=== PATIENT | female | born 1990 | race Caucasian/White ===

== ENCOUNTER 2016-09-23 19:45 | Emergency (ER) | payer SELFPAY ==
--- NOTE | 2016-09-23 22:10 | ED ORDER SUMMARY ---
..... Patient: TONYA REYNOSO OrderSheet [facility] VisitID: [id number] [address] [place] [address] 25y, F Registration Date/Time: 09/23/2016 ORDER SHEET Weight: 99.7 kg (stated) Allergies: No Known Drug Allergy GENERAL ORDERS: Accounts Receivable Accountant (Continuous) (20:04 09/23/2016 EKoroleva P.A.-C) (Ack 20:05 CHategekimana) (20:08 DDean R.N.) Urine Urgent (20:04 09/23/2016 EKoroleva P.A.-C) (Ack 20:05 CHategekimana) (20:08 DDean R.N.) (Cancelled: Other20:08 DDean R.N.) UA-Culture if indicated Urgent (20:04 09/23/2016 EKoroleva P.A.-C) (Ack 20:05 CHategekimana) (20:08 DDean R.N.) Cardiac Panel Stat (20:04 09/23/2016 EKoroleva P.A.-C) (Ack 20:05 CHategekimana) (20:08 DDean R.N.) EKG - ER Stat (20:04 09/23/2016 EKoroleva P.A.-C) (Ack 20:05 CHategekimana) (20:14 [facility] ER Kitchen Aide) POC - Urine hCG (20:09 09/23/2016 DDean R.N. per protocol) (20:09 DDean R.N.) Serum Quantitative Urgent (20:14 09/23/2016 EKoroleva P.A.-C) (Ack 20:28 CHategekimana) (20:55 DDean R.N.) MEDICATION ORDERS: Tylenol PO 650 mg (NOW) (22:12 09/23/2016 EKoroleva P.A.-C) (22:19 DDean R.N.) IV FLUIDS: IV Saline Lock (20:04 09/23/2016 EKoroleva P.A.-C) (20:10 DDean R.N.) IV NS : initial bolus 1000 mL (1000 mL/hr), then 1000 mL/hr for X1 (NOW); Jose Alberto (20:35 09/23/2016 Gabrielle Carson) (20:40 Yenifer Hurt) ORDER SHEET NOTES: [Electronically signed by Liseth Dorado P.A.-C (22:15 09/23/2016)] [Electronically signed by Krystal Lu R.N. (22:22 09/23/2016)] [Electronically locked/signed by Krystal Lu R.N. (22:22 09/23/2016)]
--- NOTE | 2016-09-23 22:10 | ED NURSING NOTES ---
Clinical Report - Nurses [place] [address] [place] [address] 09/23/2016 19:47 Patient: TONYA REYNOSO TRIAGE Triage time 1950. Acuity: LEVEL 3. Chief Complaint: (Pt staets she has had episodes of feeling like her heart was racing-- Just off and on throughout the day" pt drove from [place], so has been drinking alot of red bull and caffine.). TSERING COMA SCORE: Tsering Coma Scale: 15- eyes open spontaneously (4); best verbal response- oriented x 4 (5); best motor response- obeys commands (6). --20:00 Krystal Lu R.N. 19:53 09/23/16. BP: 116/66. HR: 89. RR: 16. O2 saturation: 100%. Temp: 98.3 F. Pain level now: 10/03. --20:00 Krystal Lu R.N. Weight: 99.7 kg stated. Height/Length: 66 inches Per Patient. BMI: 35.5. --19:54 Krystal Lu R.N. Medications Multivitamins Oral 1 pill, daily. Vitamin D Oral (Capsule 1000 unit) 1 capsule, daily . --19:55 Krystal Lu R.N. Allergies No Known Drug Allergy. --19:54 Krystal Lu R.N. History Arrived by private vehicle. Historian: patient. Accompanied by (dropped off). Primary physician (formerly [facility]). This started yesterday. ( c/o chest wall pain and low bilateral groin area pain . denies urinary symptoms, denies vag bleeding or discharge -- pt just did a [address] from [place]). PAST MEDICAL HX: Last normal menstrual period- 07/31/16. ( asthma, low BP,). SURGERY HX: No history of previous surgery. SOCIAL HX: Never smoker. No alcohol use or drug use. --20:00 Aly, Krystal, R.N. ADDITIONAL SURGERIES: no known surgeries. Interventions ID band on patient. To treatment room. --20:00 Krystal Lu R.N. PHYSICAL ASSESSMENT 19:50. Ambulatory to room. Patient gowned. GENERAL / NEURO / PSYCH: Alert. Oriented X 4. Appears anxious. RESPIRATORY: Respirations not labored. Chest wall tenderness. CVS: Capillary refill less than 2 seconds. GI / : Abdomen soft. SKIN: Skin is warm and dry. --20:02 Krystal Lu R.N. NURSING PROGRESS NOTES 19:50. environmental health nurse placed on patient. Patient gowned. Head of bed elevated. Reassurance given. Patient identifiers checked. Call light placed in reach. Side rails up. Bed placed in lowest position. Patient ready for evaluation- chart flagged. --20:00 Krystal Lu R.N. 20:09/23/16. Patient ID band checked for patient name and birthdate: patient confirmed. Clean catch urine collected with return of yellow-colored clear urine; sample sent to lab for urinalysis and culture. Specimen labeled in the presence of the patient. --20:00 Krystal Lu R.N. 20:09/23/2016 Site #1 started via IV in the left antecubital space with an 20g angiocath, with aseptic technique and good blood return; one attempt. Blood drawn: rainbow set. Labeled in the presence of the patient and sent to the lab. Saline lock flushed with 10 mL saline. --20:01 Krystal Lu R.N. 20:08 09/23/16. ( POC preg = Pos +, ERPA notified). --20:08 Krystal Lu R.N. EKG time: (2014). EKG was ordered, performed by a tech and shown to the PA. --20:14 Isai Lopez ER Residue Furnace Operator 20:40 09/23/2016 Started bag #1 1000 mL IV Fluids IV NS (Saline); at 1000 mL/hr over 1 hour(s) via site #1 via IV pump. Allergies verified and confirmed 5 rights. IV patency established. IV site checked: no pain, redness, or swelling. IV flushed thoroughly pre- and post-medication administration. --20:40 Alicia Dover R.N. 20:50 09/23/16. BP: 105/64. HR: 88. RR: 18. O2 saturation: 100%. Temp: deferred. Pain level now: 10/03. Additional comments: pt states that she had a brief episode of increased pain/ palpitations--however nothing seen on monitor when pt notified us . --20:54 Krystal Lu R.N. 22:01 09/23/16. BP: 100/51 (regular adult cuff) taken on the right arm, via an automated monitor, while lying. HR: 81. Additional comments: lying orthos. --22:02 Isai Lopez, ER Residue Furnace Operator 22:09/23/16. BP: 124/72 (regular adult cuff) taken on the right arm, via an automated monitor, while standing. PA notified. HR: 80 (regular). Additional comments: no dizzyness or complaints. --22:06 Isai Lopez, ER Residue Furnace Operator 22:09/23/2016 Tylenol (Acetaminophen) PO Tablets 650 mg given. Allergies verified and confirmed 5 rights. --22:19 Krystal Lu R.N. 22:09/23/2016 IV Fluids IV NS Discontinued: bag #1 infused upon discharge. Total amount infused: 1000 mL. IV patency established. IV site checked: no pain, redness, or swelling. IV flushed thoroughly. --22:19 Krystal Lu R.N. 22:09/23/2016 IV Saline Lock Drip IV Discontinued: bag #1. Total amount infused: 0 mL. IV patency established. IV site checked: no pain, redness, or swelling. IV flushed thoroughly. --22:19 Krystal Lu R.N. 22:09/23/2016 Site #1 removed upon discharge. Bandaid applied. --22:20 Krystal Lu R.N. DISPOSITION / DISCHARGE 22:20. Condition at departure: improved and stable. No learning barriers present. Discharge instructions provided and reviewed with the patient. Reviewed medication(s) (tylenol, zofran). Patient verbalized understanding. Written instructions provided in Urdu. The patient was discharged home and accompanied by spouse. She left the Emergency Department ambulatory and via private vehicle. Spouse driving. --22:21 Krystal Lu R.N. 22:20 09/23/16. BP: 107/58. HR: 87. RR: 18. O2 saturation: 98%. Temp: deferred. Pain level now: 10/03. --22:21 Krystal Lu R.N. Locked/Released at 09/23/2016 22:22 by Krystal Lu R.N.
--- NOTE | 2016-09-23 22:10 | ED ORDER SUMMARY ---
..... Patient: TONYA REYNOSO OrderSheet [facility] VisitID: [id number] [address] [place] [address] 25y, F Registration Date/Time: 09/23/2016 ORDER SHEET Weight: 99.7 kg (stated) Allergies: No Known Drug Allergy GENERAL ORDERS: Mailroom Assistant (Continuous) (20:04 09/23/2016 EKoroleva P.A.-C) (Ack 20:05 CHategekimana) (20:08 DDean R.N.) Urine Urgent (20:04 09/23/2016 EKoroleva P.A.-C) (Ack 20:05 CHategekimana) (20:08 DDean R.N.) (Cancelled: Other20:08 DDean R.N.) UA-Culture if indicated Urgent (20:04 09/23/2016 EKoroleva P.A.-C) (Ack 20:05 CHategekimana) (20:08 DDean R.N.) Cardiac Panel Stat (20:04 09/23/2016 EKoroleva P.A.-C) (Ack 20:05 CHategekimana) (20:08 DDean R.N.) EKG - ER Stat (20:04 09/23/2016 EKoroleva P.A.-C) (Ack 20:05 CHategekimana) (20:14 [facility] ER Administrative Support Associate) POC - Urine hCG (20:09 09/23/2016 DDean R.N. per protocol) (20:09 DDean R.N.) Serum Quantitative Urgent (20:14 09/23/2016 EKoroleva P.A.-C) (Ack 20:28 CHategekimana) (20:55 DDean R.N.) MEDICATION ORDERS: Tylenol PO 650 mg (NOW) (22:12 09/23/2016 EKoroleva P.A.-C) (22:19 DDean R.N.) IV FLUIDS: IV Saline Lock (20:04 09/23/2016 EKoroleva P.A.-C) (20:10 DDean R.N.) IV NS : initial bolus 1000 mL (1000 mL/hr), then 1000 mL/hr for X1 (NOW); Jose Alberto (20:35 09/23/2016 Gabrielle Carson) (20:40 Yenifer Hurt) ORDER SHEET NOTES: [Electronically signed by Liseth Dorado P.A.-C (22:15 09/23/2016)] [Electronically signed by Krystal Lu R.N. (22:22 09/23/2016)] [Electronically locked/signed by Krystal Lu R.N. (22:22 09/23/2016)]
--- NOTE | 2016-09-23 22:10 | ED CLINICAL REPORT ---
Clinical Report - Physicians/Mid Levels [facility] [address] [place] [address] 09/23/2016 19:47 Patient: TONYA REYNOSO Time Seen: 20:14 Sep 23 2016. Arrived- By private vehicle. Historian- patient. HISTORY OF PRESENT ILLNESS Chief Complaint: CHEST PAIN. This started yesterday and is still present. It is described as located in the central chest area. No nausea or vomiting. (Patient reports recently driving from [place] to here, having increased caffeine drinks, does need she is jittery, palpitations at times in her chest and epigastric. Decreased appetite. Patient also only on her menses. denies cardiac history. Denies any history of PE or DVT. Patient denies any recent illness, cough rhinorrhea or congestion. Reports she is late on her menses, may be .). REVIEW OF SYSTEMS No chills, cough, calf pain, fainting episodes or headache. No sore throat or abdominal pain. She has missed periods (07/31/16 lmp). All systems otherwise negative, except as recorded above. SOCIAL HISTORY Never smoker. No alcohol use or drug use. ADDITIONAL NOTES The nursing notes have been reviewed. PHYSICAL EXAM Vital Signs: 09/23/2016 19:53 BP: 116/66. HR: 89. RR: 16. O2 saturation: 100%. Temp: 98.3 F. Pain level now: 6/10. Appearance: Alert. No acute distress. Eyes: Eyes normal inspection. ENT: Nose normal. Pharynx normal. Neck: Normal inspection. CVS: Normal heart rate and rhythm. Heart sounds normal. Respiratory: No respiratory distress. Breath sounds normal. No retractions. Abdomen: Soft and nontender. Neuro: Oriented X 3. LABS, X-RAYS, AND EKG EKG: EKG time: (2014). No acute process. No acute ischemia. Rate: 83. Normal P waves. Normal JUSTEN. Normal QRS complex. Normal axis. Normal ST and T waves and QT. The study has been interpreted contemporaneously. The study has been independently viewed by me. The EKG appears to be a good tracing. Laboratory Tests: UA-Culture if indicated: (JUAN: 09/23/2016 19:55) ( [facility] [place] 09/23/2016 20:40) Final results Test Result Flag Units (Reference) URINE COLOR YELLOW URINE APPEARANCE CLEAR URINE GLUCOSE NEGATIVE (NEGATIVE) URINE BILIRUBIN NEGATIVE (NEGATIVE) URINE KETONE NEGATIVE (NEGATIVE) URINE SPECIFIC GRAVITY <= 1.005 L (1.010-1.030) URINE PH 7.0 (5.0-8.0) URINE PROTEIN NEGATIVE (NEGATIVE) URINE UROBILINOGEN 0.2 EU/dL (0.2-1.0) URINE NITRITE NEGATIVE (NEGATIVE) URINE BLOOD TRACE-LYSED (NEGATIVE) URINE LEUK ESTERASE TRACE (NEGATIVE) URINE RBC NONE SEEN rbc/hpf (0-1) URINE WBC 0-1 wbc/hpf (0-1) URINE EPITHELIAL CELLS 1-3 EPI/hpf (0-5) URINE BACTERIA TRACE (<1+) (NONE SEEN) URINE COMMENT CULTURE INDICATED URINE CULTURES ARE SET-UP BASED ON THE FOLLOWING CRITERIA:POSITIVE NITRITEPOSITIVE LEUKOCYTE ESTERASEGREATER THAN 10 WHITE BLOOD CELLSMODERATE (2+) OR GREATER BACTERIA CBC w Diff: (JUAN: 09/23/2016 20:00) ( [facility] [place] 09/23/2016 20:11) Final results Test Result Flag Units (Reference) WHITE BLOOD COUNT 12.7 H K/uL (4.5-11.5) RED BLOOD COUNT 4.48 M/uL (4.00-5.20) HEMOGLOBIN 13.3 gm/dL (12.0-16.0) HEMATOCRIT 39.9 % (36.0-46.0) MEAN CELL VOLUME 89 fL (80-100) MEAN CORPUSCULAR HGB 30 pg (26-34) MEAN CORPUSCULAR HGB CONC 34 g/dL (31-37) RED CELL DISTRIBUTION WIDTH 13.0 % (11.6-14.8) PLATELET COUNT 272 K/uL (150-400) NEUTROPHIL % 67.4 % (50-75) LYMPH % 23.2 L % (25-40) MONO % 7.0 % (3-14) EOSINOPHIL % 2.1 % (0-4) BASOPHIL % 0.3 % (0-2) Serum Quantitative: (JUAN: 09/23/2016 20:00) ( MsgRcvd 09/23/2016 21:54) Final results Test Result Flag Units (Reference) BETA HCG, QUANTITATIVE 253242 mIU/mL REFERENCE RANGE:Adult Males: <2 mIU/mLNon- Females: <6 mIU/mL Females:Approximate Approximate hCGGestational Age Range (mIU/mL) 0-1 week 0-501-2 weeks 40-3002-3 weeks 100-94754-9 weeks 500-87123-1 months 5,000-200,0002-3 months 10,000-100,0002nd trimester 3,000-50,0003rd trimester 1,000-50,000 CHEM 13 PANEL: (JUAN: 09/23/2016 20:00) ( MsgRcvd 09/23/2016 20:28) Final results Test Result Flag Units (Reference) GLUCOSE 84 mg/dL (70-110) BUN 7 mg/dL (7-18) CREATININE 0.6 mg/dL (0.6-1.3) Estimated GFR >60 mL/min Estimated GFR- >60 mL/min Note: Persistent reduction over 3 months in eGFR<60 mL/min/1.73 m2 defines CKD. Patients with eGFR values>=60 mL/min/1.73 m2 may also have CKD if evidence ofpersistent proteinuria. Additional information may be foundat www.kidney.org. SODIUM 139 mmol/L (136-145) POTASSIUM 3.6 mmol/L (3.5-5.1) CHLORIDE 102 mmol/L (98-107) CARBON DIOXIDE 26 mmol/L (21-32) CALCIUM 8.8 mg/dL (8.5-10.1) TOTAL PROTEIN 7.7 g/dL (6.4-8.2) ALBUMIN 3.7 g/dL (3.3-5.0) BILIRUBIN, TOTAL 0.4 mg/dL (0.0-1.0) ALKALINE PHOSPHATASE 92 U/L (46-116) AST (SGOT) 30 U/L (15-37) ALT (SGPT) 56 U/L (12-78) MAGNESIUM 2.0 mg/dL (1.8-2.4) CPK 117 U/L (24-260) TROPONIN I <0.05 L ng/mL (0.00-1.5) TROPONIN REFERENCE RANGE:<0.1 NEGATIVE0.1-1.5 INDETERMINANT>1.5 POSITIVE . PROGRESS AND PROCEDURES Course of Care: + POC preg patient with normal cardiac, 100% room air sat at this time suspicion for PE is low. No swelling le/ ue. Patient with no recent illness. Lungs clear. Given IV hydration in the emergency department with improvement of her symptoms. Patient with no signs of any CVA tenderness. No signs of cystitis. Patient with no vaginal bleeding, abdomen soft non tender. Patient with a likely 6-8 weeks IUP, , two prior ectopic. Discussed need to f/u in next few days, and strict return precautions. Given no abd pain/ vag bleeding suspicion for acute ectopic is lowest. 09/23/2016 22:02 BP: 124/72. HR: 80. 09/23/2016 22:01 BP: 100/51. HR: 81. Patient is stable. Patient/family counseled. Disposition: Discharged. Condition: good. CLINICAL IMPRESSION Atypical chest pain .12 lead EKG performed. Early, first trimester intrauterine . INSTRUCTIONS Avoid stimulants (such as cigarettes, coffee, cold medicines, sinus medicines, street drugs). (if new pain/ short of breath, sudden changes , near syncope abdominal pain/ vaginal bleeding return to er). Prescription Medications: Zofran (orally disintegrating tablets) 4 mg: take 1 orally every 6 hours for 3 days as needed for nausea. Dispense ten (10). No refill. Substitution is permissible. vitamins: Take 1 orally every day. Dispense thirty (30). No refill. OTC Medications: Take OTC medications according to label instructions. Available over the counter. Acetaminophen (available over the counter): take according to label instructions. Follow-up with: Rogelio Brock MD, Obstetrics/Gynecology, , [facility] [address] Follow up. Call for the next available appointment. (Electronically signed by Liseth Dorado P.A.-C 09/23/2016 22:15)
--- NOTE | 2016-09-23 22:10 | ED CLINICAL REPORT ---
Clinical Report - Physicians/Mid Levels [facility] [address] [place] [address] 09/23/2016 19:47 Patient: TONYA REYNOSO Time Seen: 20:14 Sep 23 2016. Arrived- By private vehicle. Historian- patient. HISTORY OF PRESENT ILLNESS Chief Complaint: CHEST PAIN. This started yesterday and is still present. It is described as located in the central chest area. No nausea or vomiting. (Patient reports recently driving from [place] to here, having increased caffeine drinks, does need she is jittery, palpitations at times in her chest and epigastric. Decreased appetite. Patient also only on her menses. denies cardiac history. Denies any history of PE or DVT. Patient denies any recent illness, cough rhinorrhea or congestion. Reports she is late on her menses, may be .). REVIEW OF SYSTEMS No chills, cough, calf pain, fainting episodes or headache. No sore throat or abdominal pain. She has missed periods (07/31/16 lmp). All systems otherwise negative, except as recorded above. SOCIAL HISTORY Never smoker. No alcohol use or drug use. ADDITIONAL NOTES The nursing notes have been reviewed. PHYSICAL EXAM Vital Signs: 09/23/2016 19:53 BP: 116/66. HR: 89. RR: 16. O2 saturation: 100%. Temp: 98.3 F. Pain level now: 6/10. Appearance: Alert. No acute distress. Eyes: Eyes normal inspection. ENT: Nose normal. Pharynx normal. Neck: Normal inspection. CVS: Normal heart rate and rhythm. Heart sounds normal. Respiratory: No respiratory distress. Breath sounds normal. No retractions. Abdomen: Soft and nontender. Neuro: Oriented X 3. LABS, X-RAYS, AND EKG EKG: EKG time: (2014). No acute process. No acute ischemia. Rate: 83. Normal P waves. Normal JUSTEN. Normal QRS complex. Normal axis. Normal ST and T waves and QT. The study has been interpreted contemporaneously. The study has been independently viewed by me. The EKG appears to be a good tracing. Laboratory Tests: UA-Culture if indicated: (JUAN: 09/23/2016 19:55) ( [facility] [place] 20:40) Final results Test Result Flag Units (Reference) URINE COLOR YELLOW URINE APPEARANCE CLEAR URINE GLUCOSE NEGATIVE (NEGATIVE) URINE BILIRUBIN NEGATIVE (NEGATIVE) URINE KETONE NEGATIVE (NEGATIVE) URINE SPECIFIC GRAVITY <= 1.005 L (1.010-1.030) URINE PH 7.0 (5.0-8.0) URINE PROTEIN NEGATIVE (NEGATIVE) URINE UROBILINOGEN 0.2 EU/dL (0.2-1.0) URINE NITRITE NEGATIVE (NEGATIVE) URINE BLOOD TRACE-LYSED (NEGATIVE) URINE LEUK ESTERASE TRACE (NEGATIVE) URINE RBC NONE SEEN rbc/hpf (0-1) URINE WBC 0-1 wbc/hpf (0-1) URINE EPITHELIAL CELLS 1-3 EPI/hpf (0-5) URINE BACTERIA TRACE (<1+) (NONE SEEN) URINE COMMENT CULTURE INDICATED URINE CULTURES ARE SET-UP BASED ON THE FOLLOWING CRITERIA:POSITIVE NITRITEPOSITIVE LEUKOCYTE ESTERASEGREATER THAN 10 WHITE BLOOD CELLSMODERATE (2+) OR GREATER BACTERIA CBC w Diff: (JUAN: 09/23/2016 20:00) ( [facility] [place] 20:11) Final results Test Result Flag Units (Reference) WHITE BLOOD COUNT 12.7 H K/uL (4.5-11.5) RED BLOOD COUNT 4.48 M/uL (4.00-5.20) HEMOGLOBIN 13.3 gm/dL (12.0-16.0) HEMATOCRIT 39.9 % (36.0-46.0) MEAN CELL VOLUME 89 fL (80-100) MEAN CORPUSCULAR HGB 30 pg (26-34) MEAN CORPUSCULAR HGB CONC 34 g/dL (31-37) RED CELL DISTRIBUTION WIDTH 13.0 % (11.6-14.8) PLATELET COUNT 272 K/uL (150-400) NEUTROPHIL % 67.4 % (50-75) LYMPH % 23.2 L % (25-40) MONO % 7.0 % (3-14) EOSINOPHIL % 2.1 % (0-4) BASOPHIL % 0.3 % (0-2) Serum Quantitative: (JUAN: 09/23/2016 20:00) ( MsgRcvd 09/23/2016 21:54) Final results Test Result Flag Units (Reference) BETA HCG, QUANTITATIVE [id number] mIU/mL REFERENCE RANGE:Adult Males: <2 mIU/mLNon- Females: <6 mIU/mL Females:Approximate Approximate hCGGestational Age Range (mIU/mL) 0-1 week 0-501-2 weeks 40-3002-3 weeks 100-98683-2 weeks 500-32934-2 months 5,000-200,0002-3 months 10,000-100,0002nd trimester 3,000-50,0003rd trimester 1,000-50,000 CHEM 13 PANEL: (JUAN: 09/23/2016 20:00) ( MsgRcvd 09/23/2016 20:28) Final results Test Result Flag Units (Reference) GLUCOSE 84 mg/dL (70-110) BUN 7 mg/dL (7-18) CREATININE 0.6 mg/dL (0.6-1.3) Estimated GFR >60 mL/min Estimated GFR- >60 mL/min Note: Persistent reduction over 3 months in eGFR<60 mL/min/1.73 m2 defines CKD. Patients with eGFR values>=60 mL/min/1.73 m2 may also have CKD if evidence ofpersistent proteinuria. Additional information may be foundat www.kidney.org. SODIUM 139 mmol/L (136-145) POTASSIUM 3.6 mmol/L (3.5-5.1) CHLORIDE 102 mmol/L (98-107) CARBON DIOXIDE 26 mmol/L (21-32) CALCIUM 8.8 mg/dL (8.5-10.1) TOTAL PROTEIN 7.7 g/dL (6.4-8.2) ALBUMIN 3.7 g/dL (3.3-5.0) BILIRUBIN, TOTAL 0.4 mg/dL (0.0-1.0) ALKALINE PHOSPHATASE 92 U/L (46-116) AST (SGOT) 30 U/L (15-37) ALT (SGPT) 56 U/L (12-78) MAGNESIUM 2.0 mg/dL (1.8-2.4) CPK 117 U/L (24-260) TROPONIN I <0.05 L ng/mL (0.00-1.5) TROPONIN REFERENCE RANGE:<0.1 NEGATIVE0.1-1.5 INDETERMINANT>1.5 POSITIVE . PROGRESS AND PROCEDURES Course of Care: + POC preg patient with normal cardiac, 100% room air sat at this time suspicion for PE is low. No swelling le/ ue. Patient with no recent illness. Lungs clear. Given IV hydration in the emergency department with improvement of her symptoms. Patient with no signs of any CVA tenderness. No signs of cystitis. Patient with no vaginal bleeding, abdomen soft non tender. Patient with a likely 6-8 weeks IUP, , two prior ectopic. Discussed need to f/u in next few days, and strict return precautions. Given no abd pain/ vag bleeding suspicion for acute ectopic is lowest. 09/23/2016 22:02 BP: 124/72. HR: 80. 09/23/2016 22:01 BP: 100/51. HR: 81. Patient is stable. Patient/family counseled. Disposition: Discharged. Condition: good. CLINICAL IMPRESSION Atypical chest pain .12 lead EKG performed. Early, first trimester intrauterine . INSTRUCTIONS Avoid stimulants (such as cigarettes, coffee, cold medicines, sinus medicines, street drugs). (if new pain/ short of breath, sudden changes , near syncope abdominal pain/ vaginal bleeding return to er). Prescription Medications: Zofran (orally disintegrating tablets) 4 mg: take 1 orally every 6 hours for 3 days as needed for nausea. Dispense ten (10). No refill. Substitution is permissible. vitamins: Take 1 orally every day. Dispense thirty (30). No refill. OTC Medications: Take OTC medications according to label instructions. Available over the counter. Acetaminophen (available over the counter): take according to label instructions. Follow-up with: Rogelio Brock MD, Obstetrics/Gynecology, , [facility] [address] Follow up. Call for the next available appointment. (Electronically signed by Liseth Dorado P.A.-C 09/23/2016 22:15)
--- NOTE | 2016-09-23 22:10 | ED NURSING NOTES ---
Clinical Report - Nurses [place] [address] [place] [address] 09/23/2016 19:47 Patient: TONYA REYNOSO TRIAGE Triage time 1950. Acuity: LEVEL 3. Chief Complaint: (Pt staets she has had episodes of feeling like her heart was racing-- Just off and on throughout the day" pt drove from [place], so has been drinking alot of red bull and caffine.). TSERING COMA SCORE: Tsering Coma Scale: 15- eyes open spontaneously (4); best verbal response- oriented x 4 (5); best motor response- obeys commands (6). --20:00 Krystal Lu R.N. 19:53 09/23/16. BP: 116/66. HR: 89. RR: 16. O2 saturation: 100%. Temp: 98.3 F. Pain level now: 10/03. --20:00 Krystal Lu R.N. Weight: 99.7 kg stated. Height/Length: 66 inches Per Patient. BMI: 35.5. --19:54 Krystal Lu R.N. Medications Multivitamins Oral 1 pill, daily. Vitamin D Oral (Capsule 1000 unit) 1 capsule, daily . --19:55 Krystal Lu R.N. Allergies No Known Drug Allergy. --19:54 Krystal Lu R.N. History Arrived by private vehicle. Historian: patient. Accompanied by (dropped off). Primary physician ([facility]). This started yesterday. ( c/o chest wall pain and low bilateral groin area pain . denies urinary symptoms, denies vag bleeding or discharge -- pt just did a [address] from [place]). PAST MEDICAL HX: Last normal menstrual period- 07/31/16. ( asthma, low BP,). SURGERY HX: No history of previous surgery. SOCIAL HX: Never smoker. No alcohol use or drug use. --20:00 Aly, Krystal, R.N. ADDITIONAL SURGERIES: no known surgeries. Interventions ID band on patient. To treatment room. --20:00 Krystal Lu R.N. PHYSICAL ASSESSMENT 19:50. Ambulatory to room. Patient gowned. GENERAL / NEURO / PSYCH: Alert. Oriented X 4. Appears anxious. RESPIRATORY: Respirations not labored. Chest wall tenderness. CVS: Capillary refill less than 2 seconds. GI / : Abdomen soft. SKIN: Skin is warm and dry. --20:02 Krystal Lu R.N. NURSING PROGRESS NOTES 19:50. nurse monitoring placed on patient. Patient gowned. Head of bed elevated. Reassurance given. Patient identifiers checked. Call light placed in reach. Side rails up. Bed placed in lowest position. Patient ready for evaluation- chart flagged. --20:00 Krystal Lu R.N. 20:09/23/16. Patient ID band checked for patient name and birthdate: patient confirmed. Clean catch urine collected with return of yellow-colored clear urine; sample sent to lab for urinalysis and culture. Specimen labeled in the presence of the patient. --20:00 Krystal Lu R.N. 20:09/23/2016 Site #1 started via IV in the left antecubital space with an 20g angiocath, with aseptic technique and good blood return; one attempt. Blood drawn: rainbow set. Labeled in the presence of the patient and sent to the lab. Saline lock flushed with 10 mL saline. --20:01 Krystal Lu R.N. 20:08 09/23/16. ( POC preg = Pos +, ERPA notified). --20:08 Krystal Lu R.N. EKG time: (2014). EKG was ordered, performed by a tech and shown to the PA. --20:14 Isai Lopez ER Career Development Manager 20:40 09/23/2016 Started bag #1 1000 mL IV Fluids IV NS (Saline); at 1000 mL/hr over 1 hour(s) via site #1 via IV pump. Allergies verified and confirmed 5 rights. IV patency established. IV site checked: no pain, redness, or swelling. IV flushed thoroughly pre- and post-medication administration. --20:40 Alicia [place] R.N. 20:50 09/23/16. BP: 105/64. HR: 88. RR: 18. O2 saturation: 100%. Temp: deferred. Pain level now: 10/03. Additional comments: pt states that she had a brief episode of increased pain/ palpitations--however nothing seen on monitor when pt notified us . --20:54 Krystal Lu R.N. 22:01 09/23/16. BP: 100/51 (regular adult cuff) taken on the right arm, via an automated monitor, while lying. HR: 81. Additional comments: lying orthos. --22:02 Isai Lopez, ER Career Development Manager 22:09/23/16. BP: 124/72 (regular adult cuff) taken on the right arm, via an automated monitor, while standing. PA notified. HR: 80 (regular). Additional comments: no dizzyness or complaints. --22:06 Isai Lopez, ER Career Development Manager 22:09/23/2016 Tylenol (Acetaminophen) PO Tablets 650 mg given. Allergies verified and confirmed 5 rights. --22:19 Krystal Lu R.N. 22:09/23/2016 IV Fluids IV NS Discontinued: bag #1 infused upon discharge. Total amount infused: 1000 mL. IV patency established. IV site checked: no pain, redness, or swelling. IV flushed thoroughly. --22:19 Krystal Lu R.N. 22:09/23/2016 IV Saline Lock Drip IV Discontinued: bag #1. Total amount infused: 0 mL. IV patency established. IV site checked: no pain, redness, or swelling. IV flushed thoroughly. --22:19 Krystal Lu R.N. 22:09/23/2016 Site #1 removed upon discharge. Bandaid applied. --22:20 Krystal Lu R.N. DISPOSITION / DISCHARGE 22:20. Condition at departure: improved and stable. No learning barriers present. Discharge instructions provided and reviewed with the patient. Reviewed medication(s) (tylenol, zofran). Patient verbalized understanding. Written instructions provided in Italian. The patient was discharged home and accompanied by spouse. She left the Emergency Department ambulatory and via private vehicle. Spouse driving. --22:21 Krystal Lu R.N. 22:20 09/23/16. BP: 107/58. HR: 87. RR: 18. O2 saturation: 98%. Temp: deferred. Pain level now: 10/03. --22:21 Krystal Lu R.N. Locked/Released at 09/23/2016 22:22 by Krystal Lu R.N.
--- NOTE | 2016-09-23 22:22 | ED MAR SUMMARY ---
..... Medication Administration Record [facility] [address] [place] [address] Patient: TONYA REYNOSO Visit ID: [id number] 25y, F Weight: 99.7 kg Height/Length: 66 in BMI: 35.5 ALLERGIES: No Known Drug Allergy Start 20:40 09/23/2016 Alicia [place] R.N., Stop 22:09 09/23/2016 Krystal Lu R.N. Medication Administered: IV NS (SALINE), Dose: IV Fluids over 1 hour(s), Rate: 1000 mL/hr, Dispensed: 1000 mL bag, Site: #1 left AC. Medication Ordered: IV NS : initial bolus 1000 mL (1000 mL/hr), then 1000 mL/hr for X1 (NOW); Jose Alberto. Given 22:09 09/23/2016 Krystal Lu R.N. Medication Administered: TYLENOL [PO] (ACETAMINOPHEN), Dose: 650 mg Tablets PO. Medication Ordered: Tylenol PO 650 mg (NOW).
--- NOTE | 2016-09-23 22:22 | ED DISCHARGE INSTRUCTIONS ---
Patient: TONYA REYNOSO General Instructions [facility] VisitID: [id number] [place] [address] 25y, F Registration Date/Time: 09/23/2016 Atypical chest pain .12 lead EKG performed. Early, first trimester intrauterine . INSTRUCTIONS Avoid stimulants (such as cigarettes, coffee, cold medicines, sinus medicines, street drugs). (if new pain/ short of breath, sudden changes , near syncope abdominal pain/ vaginal bleeding return to er). Prescription Medications: Zofran (orally disintegrating tablets) 4 mg: take 1 orally every 6 hours for 3 days as needed for nausea. Dispense ten (10). No refill. Substitution is permissible. vitamins: Take 1 orally every day. Dispense thirty (30). No refill. OTC Medications: Take OTC medications according to label instructions. Available over the counter. Acetaminophen (available over the counter): take according to label instructions. Follow-up with: Rogelio Brock MD, Obstetrics/Gynecology, , [facility], [address] [place] [address] Follow up. Call for the next available appointment. ADDITIONAL INFORMATION Chest Pain, Uncertain Cause Chest pain can happen for a number of reasons. Sometimes the cause can not be determined. If yourcondition does not seem serious, and your pain does not appear to be coming from your heart, your doctor may recommend watching it closely. Sometimes the signs of a serious problem take more time to appear. Therefore, watch for the warning signs listed below. Home care After your visit, follow these recommendations: Rest today and avoid strenuous activity. Take any prescribed medicine as directed. Follow-up care Follow up with your doctor or this facility as instructed or if you do not start to feel better within 24 hours. Call 911 Get immediate medical attention if any of the following occur: A change in the type of pain: if it feels different, becomes more severe, lasts longer, or begins to spread into your shoulder, arm, neck, jaw or back Shortness of breath or increased pain with breathing Weakness, dizziness, or fainting Rapid heart beat Get prompt medical attention Call your doctor right away if any of the following occur: Cough with dark colored sputum (phlegm) or blood Fever of 100.4F(38C) or higher, or as directed by your health care provider Swelling, pain or redness in one leg Your exam today shows that you are . During , it is normal to develop tender swollen breasts, frequent urination and mild vaginal discharge. During the first three months, nausea is common. Guidelines For A Healthy : To ensure that your baby is born healthy there are certain things that you can do: When you feel tired, you should REST. This is especially true in the later months of . Your body needs more FLUIDS than you may be used to: You should drink 8-10 glasses of juice, milk or water. Eat well-balanced MEALS at regular intervals to supply your body with enough protein. You can expect a total weight gain of about 30 pounds during the . Do not try to diet or lose weight while you are . Because of the extra nutritional needs during , take one VITAMIN daily. Do not take any other MEDICINE during your (prescribed or ippu-mbg-zednxca) unless your doctor specifically recommends this. Many drugs can have harmful effects on the growing baby. If NAUSEA or VOMITING become a problem, avoid greasy and fried foods. Eat several smaller meals throughout the day rather than three large meals. If you SMOKE, you must stop. The nicotine you breathe in goes right to the baby. Stay away from ALCOHOL, even in moderate amounts. Daily drinking will harm your baby and can cause permanent brain damage. RECREATIONAL DRUGS are harmful, especially cocaine, crack, and heroin. Marijuana should also be avoided. If you were using recreational drugs or prescribed medicine when you found out that you were , talk to your doctor about possible effects on the fetus. Follow Up: Call to arrange for care. This can be provided by your family doctor, an training and development officer ( specialist) or a primary care clinic. Get Prompt Medical Attention if any of the following occur: Vaginal bleeding Moderate or severe abdominal or back pain Excessive vomiting, unable to keep any fluids down for six hours Burning with urination Headache, dizziness or rapid weight gain Your exam today shows that you are . During , it is normal to develop tender swollen breasts, frequent urination and mild vaginal discharge. During the first three months, nausea is common. Guidelines For A Healthy : To ensure that your baby is born healthy there are certain things that you can do: When you feel tired, you should REST. This is especially true in the later months of . Your body needs more FLUIDS than you may be used to: You should drink 8-10 glasses of juice, milk or water. Eat well-balanced MEALS at regular intervals to supply your body with enough protein. You can expect a total weight gain of about 30 pounds during the . Do not try to diet or lose weight while you are . Because of the extra nutritional needs during , take one VITAMIN daily. Do not take any other MEDICINE during your (prescribed or rvbv-oju-vnetmuy) unless your doctor specifically recommends this. Many drugs can have harmful effects on the growing baby. If NAUSEA or VOMITING become a problem, avoid greasy and fried foods. Eat several smaller meals throughout the day rather than three large meals. If you SMOKE, you must stop. The nicotine you breathe in goes right to the baby. Stay away from ALCOHOL, even in moderate amounts. Daily drinking will harm your baby and can cause permanent brain damage. RECREATIONAL DRUGS are harmful, especially cocaine, crack, and heroin. Marijuana should also be avoided. If you were using recreational drugs or prescribed medicine when you found out that you were , talk to your doctor about possible effects on the fetus. Follow Up: Call to arrange for care. This can be provided by your family doctor, an training and development officer ( specialist) or a primary care clinic. Get Prompt Medical Attention if any of the following occur: Vaginal bleeding Moderate or severe abdominal or back pain Excessive vomiting, unable to keep any fluids down for six hours Burning with urination Headache, dizziness or rapid weight gain You have been given the following additional information: Chest Pain, Uncertain Cause , New Dx , New Dx (Electronically signed by Liseth Dorado P.A.-C 09/23/2016 22:15)
--- NOTE | 2016-09-23 22:22 | ED MED RECONCILIATION SUMMARY ---
Patient: TONYA REYNOSO Medication Reconciliation Report [facility] VisitID: [id number] [address] [place] [address] 25y, F Registration Date/Time: 09/23/2016 Weight: 99.7 kg Height/Length: 66 in. BMI: 35.5 ALLERGIES: No Known Drug Allergy The patient's Home Medications are listed below: THE FOLLOWING MEDICATIONS NEED TO BE RECONCILED: Multivitamins Oral 1 pill, daily Vitamin D Oral (1000 unit) 1 capsule, daily The source(s) of the original Home Medication information: Not obtained. The following Medications were given to the patient in the Emergency Department: IV NS IV Fluids bolus 0, then 1000 mL/hr, administered: 09/23/2016 8:40:00 PM Tylenol [PO] PO 650 mg, administered: 09/23/2016 10:09:00 PM The following Medications were prescribed to the patient: Take OTC medications according to label instructions. Available over the counter. -- Liseth Dorado, P.A.-C Acetaminophen (available over the counter): take according to label instructions. -- Liseth Dorado, P.A.-C Zofran (orally disintegrating tablets) 4 mg: take 1 orally every 6 hours for 3 days as needed for nausea. Dispense ten (10). No refill. Substitution is permissible. -- Liseth Dorado, P.A.-C vitamins: Take 1 orally every day. Dispense thirty (30). No refill. -- Liseth Dorado, P.A.-C
--- NOTE | 2016-09-23 22:22 | ED DISCHARGE INSTRUCTIONS ---
Patient: TONYA REYNOSO General Instructions [facility] VisitID: [id number] [place] [address] 25y, F Registration Date/Time: 09/23/2016 Atypical chest pain .12 lead EKG performed. Early, first trimester intrauterine . INSTRUCTIONS Avoid stimulants (such as cigarettes, coffee, cold medicines, sinus medicines, street drugs). (if new pain/ short of breath, sudden changes , near syncope abdominal pain/ vaginal bleeding return to er). Prescription Medications: Zofran (orally disintegrating tablets) 4 mg: take 1 orally every 6 hours for 3 days as needed for nausea. Dispense ten (10). No refill. Substitution is permissible. vitamins: Take 1 orally every day. Dispense thirty (30). No refill. OTC Medications: Take OTC medications according to label instructions. Available over the counter. Acetaminophen (available over the counter): take according to label instructions. Follow-up with: Rogelio Brock MD, Obstetrics/Gynecology, , [facility], [address] [place] [address] Follow up. Call for the next available appointment. ADDITIONAL INFORMATION Chest Pain, Uncertain Cause Chest pain can happen for a number of reasons. Sometimes the cause can not be determined. If yourcondition does not seem serious, and your pain does not appear to be coming from your heart, your doctor may recommend watching it closely. Sometimes the signs of a serious problem take more time to appear. Therefore, watch for the warning signs listed below. Home care After your visit, follow these recommendations: Rest today and avoid strenuous activity. Take any prescribed medicine as directed. Follow-up care Follow up with your doctor or this facility as instructed or if you do not start to feel better within 24 hours. Call 911 Get immediate medical attention if any of the following occur: A change in the type of pain: if it feels different, becomes more severe, lasts longer, or begins to spread into your shoulder, arm, neck, jaw or back Shortness of breath or increased pain with breathing Weakness, dizziness, or fainting Rapid heart beat Get prompt medical attention Call your doctor right away if any of the following occur: Cough with dark colored sputum (phlegm) or blood Fever of 100.4F(38C) or higher, or as directed by your health care provider Swelling, pain or redness in one leg Your exam today shows that you are . During , it is normal to develop tender swollen breasts, frequent urination and mild vaginal discharge. During the first three months, nausea is common. Guidelines For A Healthy : To ensure that your baby is born healthy there are certain things that you can do: When you feel tired, you should REST. This is especially true in the later months of . Your body needs more FLUIDS than you may be used to: You should drink 8-10 glasses of juice, milk or water. Eat well-balanced MEALS at regular intervals to supply your body with enough protein. You can expect a total weight gain of about 30 pounds during the . Do not try to diet or lose weight while you are . Because of the extra nutritional needs during , take one VITAMIN daily. Do not take any other MEDICINE during your (prescribed or yrbn-zti-dizxafd) unless your doctor specifically recommends this. Many drugs can have harmful effects on the growing baby. If NAUSEA or VOMITING become a problem, avoid greasy and fried foods. Eat several smaller meals throughout the day rather than three large meals. If you SMOKE, you must stop. The nicotine you breathe in goes right to the baby. Stay away from ALCOHOL, even in moderate amounts. Daily drinking will harm your baby and can cause permanent brain damage. RECREATIONAL DRUGS are harmful, especially cocaine, crack, and heroin. Marijuana should also be avoided. If you were using recreational drugs or prescribed medicine when you found out that you were , talk to your doctor about possible effects on the fetus. Follow Up: Call to arrange for care. This can be provided by your family doctor, an calculus professor ( specialist) or a primary care clinic. Get Prompt Medical Attention if any of the following occur: Vaginal bleeding Moderate or severe abdominal or back pain Excessive vomiting, unable to keep any fluids down for six hours Burning with urination Headache, dizziness or rapid weight gain Your exam today shows that you are . During , it is normal to develop tender swollen breasts, frequent urination and mild vaginal discharge. During the first three months, nausea is common. Guidelines For A Healthy : To ensure that your baby is born healthy there are certain things that you can do: When you feel tired, you should REST. This is especially true in the later months of . Your body needs more FLUIDS than you may be used to: You should drink 8-10 glasses of juice, milk or water. Eat well-balanced MEALS at regular intervals to supply your body with enough protein. You can expect a total weight gain of about 30 pounds during the . Do not try to diet or lose weight while you are . Because of the extra nutritional needs during , take one VITAMIN daily. Do not take any other MEDICINE during your (prescribed or uoqf-ecn-bpmizew) unless your doctor specifically recommends this. Many drugs can have harmful effects on the growing baby. If NAUSEA or VOMITING become a problem, avoid greasy and fried foods. Eat several smaller meals throughout the day rather than three large meals. If you SMOKE, you must stop. The nicotine you breathe in goes right to the baby. Stay away from ALCOHOL, even in moderate amounts. Daily drinking will harm your baby and can cause permanent brain damage. RECREATIONAL DRUGS are harmful, especially cocaine, crack, and heroin. Marijuana should also be avoided. If you were using recreational drugs or prescribed medicine when you found out that you were , talk to your doctor about possible effects on the fetus. Follow Up: Call to arrange for care. This can be provided by your family doctor, an calculus professor ( specialist) or a primary care clinic. Get Prompt Medical Attention if any of the following occur: Vaginal bleeding Moderate or severe abdominal or back pain Excessive vomiting, unable to keep any fluids down for six hours Burning with urination Headache, dizziness or rapid weight gain You have been given the following additional information: Chest Pain, Uncertain Cause , New Dx , New Dx (Electronically signed by Liseth Dorado P.A.-C 09/23/2016 22:15)
--- NOTE | 2016-09-23 22:22 | ED MED RECONCILIATION SUMMARY ---
Patient: TONYA REYNOSO Medication Reconciliation Report [facility] VisitID: [id number] [address] [place] [address] 25y, F Registration Date/Time: 09/23/2016 Weight: 99.7 kg Height/Length: 66 in. BMI: 35.5 ALLERGIES: No Known Drug Allergy The patient's Home Medications are listed below: THE FOLLOWING MEDICATIONS NEED TO BE RECONCILED: Multivitamins Oral 1 pill, daily Vitamin D Oral (1000 unit) 1 capsule, daily The source(s) of the original Home Medication information: Not obtained. The following Medications were given to the patient in the Emergency Department: IV NS IV Fluids bolus 0, then 1000 mL/hr, administered: 09/23/2016 8:40:00 PM Tylenol [PO] PO 650 mg, administered: 09/23/2016 10:09:00 PM The following Medications were prescribed to the patient: Take OTC medications according to label instructions. Available over the counter. -- Liseth Dorado, P.A.-C Acetaminophen (available over the counter): take according to label instructions. -- Liseth Dorado, P.A.-C Zofran (orally disintegrating tablets) 4 mg: take 1 orally every 6 hours for 3 days as needed for nausea. Dispense ten (10). No refill. Substitution is permissible. -- Liseth Dorado, P.A.-C vitamins: Take 1 orally every day. Dispense thirty (30). No refill. -- Liseth Dorado, P.A.-C
--- NOTE | 2016-09-23 22:22 | ED MAR SUMMARY ---
..... Medication Administration Record [facility] [address] [place] [address] Patient: TONYA REYNOSO Visit ID: [id number] 25y, F Weight: 99.7 kg Height/Length: 66 in BMI: 35.5 ALLERGIES: No Known Drug Allergy Start 20:40 09/23/2016 Alicia [place] R.N., Stop 22:09 09/23/2016 Krystal Lu R.N. Medication Administered: IV NS (SALINE), Dose: IV Fluids over 1 hour(s), Rate: 1000 mL/hr, Dispensed: 1000 mL bag, Site: #1 left AC. Medication Ordered: IV NS : initial bolus 1000 mL (1000 mL/hr), then 1000 mL/hr for X1 (NOW); Jose Alberto. Given 22:09 09/23/2016 Krystal Lu R.N. Medication Administered: TYLENOL [PO] (ACETAMINOPHEN), Dose: 650 mg Tablets PO. Medication Ordered: Tylenol PO 650 mg (NOW).
== END 2016-09-23 22:20 | disposition home or self-care (01) ==
LOC: ED SRH 19:45
DX: O99.89 Other specified diseases and conditions complicating pregnancy, childbirth and the puerperium (principal); R07.89 Other chest pain; Z3A.08 8 weeks gestation of pregnancy
CPT/HCPCS: 90004; 90100; 90197; 90469; 90616; 92610; 92720; 95059